=== PATIENT | female | born 1995 | race Caucasian/White ===

== ENCOUNTER 2022-10-24 12:39 | Emergency (ER) | payer MEDICAID, SELFPAY ==
--- NOTE | ~2022-10-24 | CT_ITS ---
EXAMINATION: CT ABDOMEN AND PELVIS WITHOUT CONTRAST CLINICAL INFORMATION: Right flank pain. COMPARISON: None TECHNIQUE: Multidetector volumetric imaging was performed from the superior aspect of the liver through the pubic symphysis. Sagittal and coronal reformatted images were obtained on the technologist's workstation. This CT examination was performed using dose optimization techniques as appropriate, variously including the following: *Automated exposure control *Adjustment of mA and/or kV according to patient size (this includes techniques or standardized protocols for targeted exams where dose is matched to indication/reason for exam; i.e. extremities or head) *Use of iterative reconstruction technique DLP: 603 mGy-cm FINDINGS: LUNG BASES: The visualized lung bases are unremarkable. LIVER, GALLBLADDER, AND BILIARY TREE: The liver is normal in size, shape, and attenuation. No focal hepatic lesion or biliary ductal dilatation is present. The gallbladder is unremarkable with no evidence of radiopaque gallstones, gallbladder wall thickening, or obvious pericholecystic inflammatory changes. PANCREAS: Unremarkable. SPLEEN: Unremarkable. ADRENAL GLANDS: Unremarkable. KIDNEYS AND URETERS: The kidneys are normal in size, shape, and attenuation. No hydronephrosis, hydroureter, or calculi seen. No perinephric stranding. There are 1 mm punctate calcifications are tiny stones in the midpole and lower pole right kidney. BLADDER: Unremarkable. GASTROINTESTINAL TRACT: There is moderate stool seen in colon without distention. The small bowel loops are normal caliber. A retrocecal appendix is normal caliber. No inflammatory process seen in the right abdomen. ABDOMINAL WALL: No significant hernia is appreciated. LYMPH NODES: Normal. VASCULAR: Unremarkable. PELVIC VISCERA: There is 3.2 x 3.5 cm cyst posterior and superior right uterus likely a small ovarian cyst. No solid lesion seen. No free fluid. OSSEOUS STRUCTURES: Unremarkable. CT/CT abdomen pelvis wo IV con IMPRESSION: Punctate nonobstructive radiopaque calculi mid pole and lower pole right kidney. Moderate constipation without obstruction. Appendix is normal caliber. Fleischner guidelines were followed.
--- NOTE | 2022-10-24 12:53 | ED.GENADULT ---
HPI - General Adult General Chief complaint: Abdominal Pain <ALLI Cruz - Last Filed: 10/24/22 18:26> Stated complaint: Pelvic pain/back pain <ALLI Cruz - Last Filed: 10/24/22 18:26> Time Seen by Provider: 10/24/22 13:17 <ALLI Cruz - Last Filed: 10/24/22 18:26> Source: patient <Digna Viveros NP - Last Filed: 10/24/22 16:17> Mode of arrival: ambulatory <Digna Viveros NP - Last Filed: 10/24/22 16:17> Limitations: no limitations <Digna Viveros NP - Last Filed: 10/24/22 16:17> History of Present Illness HPI narrative: 27-year-old female previously healthy here with UTI symptoms the last 3 days now with pain to the right right groin radiating up to the right flank since last night. Patient reports pain was severe enough last night that she had 1 episode of vomiting. She denies any additional episodes of vomiting. No fevers, chills, diarrhea or constipation. Pain began after having sexual intercourse. No new sexual partners. <Digna Viveros NP - Last Filed: 10/24/22 16:17> Related Data Home medications: Previous Rx's Medication Instructions Recorded ciprofloxacin HCl 500 mg tablet 500 mg PO Q12H #20 tabs 10/24/22 (Cipro) oxycodone 5 mg tablet 5 mg PO Q8H PRN pain #8 tabs 10/24/22 phenazopyridine 200 mg tablet 200 mg PO TID PRN pain 6 doses #10 10/24/22 (Pyridium) tabs <ALLI Cruz - Last Filed: 10/24/22 18:26> Allergies/adverse reactions: Allergies Allergy/AdvReac Type Severity Reaction Status Date / Time shellfish derived Allergy Unknown hives, Verified 10/24/22 12:54 [SHELLFISH DERIVED] swell shellfish Allergy Unknown Swelling Uncoded 10/24/22 12:54 <ALLI Cruz Last Filed: 10/24/22 18:26> Review of Systems Review of Systems: Yes all other systems are reviewed and are negative <Digna Viveros NP - Last Filed: 10/24/22 16:17> Constitutional: Constitutional: Reports no additional constitutional complaints, Denies body ache(s), Denies chills, Denies fever(s), Denies headache(s) and Denies weakness <Digna Viveros MANAGER BEVERAGE - Last Filed: 10/24/22 16:17> Eyes: Eyes: Reports no additional eye complaints and Denies change in vision <Digna Viveros MANAGER BEVERAGE - Last Filed: 10/24/22 16:17> ENT: Reports system reviewed and no additional complaints, except as documented, Denies dizziness, Denies headache(s), Denies nasal congestion, Denies nasal discharge and Denies neck pain <Digna Viveros MANAGER BEVERAGE - Last Filed: 10/24/22 16:17> Cardiovascular: Cardiovascular: Reports no additional cardiovascular complaints, Denies chest pain, Denies leg edema and Denies dyspnea <Digna Viverso MANAGER BEVERAGE - Last Filed: 10/24/22 16:17> Respiratory: Respiratory: Reports no additional respiratory complaints, Denies cough and Denies dyspnea <Digna Viveros MANAGER BEVERAGE - Last Filed: 10/24/22 16:17> Gastrointestinal: Gastrointestinal: Reports no additional gastrointestinal complaints, Denies abdominal pain, Denies diarrhea, Denies nausea and Denies vomiting <Digna Viveros MANAGER BEVERAGE - Last Filed: 10/24/22 16:17> Genitourinary: Genitourinary: Reports no additional female genitourinary complaints, Reports dysuria, Denies pelvic pain, Reports flank pain, Denies urinary incontinence, Denies urinary hesitancy, Reports urinary urgency and Denies vaginal discharge <Digna Viveros MANAGER BEVERAGE - Last Filed: 10/24/22 16:17> Musculoskeletal: Musculoskeletal: Reports no additional musculoskeletal complaints, Reports back pain, Denies arthralgias, Denies joint swelling, Denies neck pain, Denies numbness and Denies tingling <Digna Viveros MANAGER BEVERAGE - Last Filed: 10/24/22 16:17> Integumentary/Breasts: Skin/Breast: Reports system reviewed and no additional complaints, except as docu and Denies rash <Digna Viveros NP - Last Filed: 10/24/22 16:17> Neurologic: Reports system reviewed and no additional complaints, except as documented, Denies dizziness, Denies headache(s), Denies numbness, Denies tingling and Denies weakness <Digna Viveros NP - Last Filed: 10/24/22 16:17> PMFSH Past Medical History Attestation statement: The following information was validated with the patient. <Digna Viveros NP - Last Filed: 10/24/22 16:17> Source: old records reviewed and nursing notes reviewed <Digna Viveros NP - Last Filed: 10/24/22 16:17> Social History Social History: Social History Alcohol intake: unknown Use of substances other than those prescribed or required for medical reasons: Unknown Advance Directives: No Advance Directives Information Provided: No <ALLI Cruz - Last Filed: 10/24/22 18:26> Physical Exam ED Vital Signs: Vital Signs - 24 hr 10/24/22 12:55 10/24/22 14:13 Temperature 98.4 F 97.6 F Pulse Rate 90 63 Respiratory Rate 20 18 Blood Pressure 124/79 107/68 Pulse Oximetry 100 99 Oxygen Delivery Method Room Air Room Air BMI result Body Mass Index 33.0 <ALLI Cruz - Last Filed: 10/24/22 18:26> Vital Signs - 24 hr 10/24/22 12:55 10/24/22 14:13 Temperature 98.4 F 97.6 F Pulse Rate 90 63 Respiratory Rate 20 18 Blood Pressure 124/79 107/68 Pulse Oximetry 100 99 Oxygen Delivery Method Room Air Room Air BMI result Body Mass Index 33.0 <Digna Viveros NP - Last Filed: 10/24/22 16:17> Const General: cooperative, healthy appearing, comfortable and no acute distress <Digna Viveros NP - Last Filed: 10/24/22 16:17> Orientation/consciousness: patient oriented x3 <Digna Viveros NP - Last Filed: 10/24/22 16:17> Limitations: no limitations <Digna Viveros NP - Last Filed: 10/24/22 16:17> HENMT Head: Yes normal to inspection <Digna Viveros NP - Last Filed: 10/24/22 16:17> Ears: hearing grossly normal bilaterally <Digna Viveros MANAGER BEVERAGE - Last Filed: 10/24/22 16:17> Eyes General: appearance normal, both eyes and all related structures <Digna Viveros MANAGER BEVERAGE - Last Filed: 10/24/22 16:17> Pupils: Equal, round and reactive pupils present <Digna Viveros MANAGER BEVERAGE - Last Filed: 10/24/22 16:17> Neck Neck: Yes normal visual inspection, Yes full ROM, Yes no lymphadenopathy and Yes no meningeal signs <Digna Viveros MANAGER BEVERAGE - Last Filed: 10/24/22 16:17> Chest Chest palpation & inspection: normal inspection of the chest <Digna Viveros NP - Last Filed: 10/24/22 16:17> Resp Effort & Inspection: normal respiratory effort <Digna Viveros MANAGER BEVERAGE - Last Filed: 10/24/22 16:17> Auscultation: clear to auscultation bilaterally <Digna Viveros MANAGER BEVERAGE - Last Filed: 10/24/22 16:17> Cardio Rate: regular rate <Digna Viveros MANAGER BEVERAGE - Last Filed: 10/24/22 16:17> Rhythm: regular rhythm <Digna Viveros MANAGER BEVERAGE - Last Filed: 10/24/22 16:17> Peripheral pulses: Peripheral pulses 2+ throughout <Digna Viveros MANAGER BEVERAGE - Last Filed: 10/24/22 16:17> GI Inspection: Yes normal to inspection <Digna Viveros MANAGER BEVERAGE - Last Filed: 10/24/22 16:17> Palpation (GI): Soft to palpation and Tenderness to palpation present (GI) (Tenderness the right groin with no rebound or guarding) <Digna Viveros MANAGER BEVERAGE - Last Filed: 10/24/22 16:17> General: Yes CVA tenderness (Right-sided) <Digna Viveros MANAGER BEVERAGE - Last Filed: 10/24/22 16:17> Back/Spine/Pelvis Back: CVA tenderness (Right-sided) <Digna Viveros NP - Last Filed: 10/24/22 16:17> Thoracic/Lumbar Spine: thoracic and lumbar spine normal to inspection <Digna Viveros NP - Last Filed: 10/24/22 16:17> Skin General skin exam: no rashes or lesions noted <Digna Viveros NP - Last Filed: 10/24/22 16:17> Neuro General: patient oriented x3, moves all extremities and no meningeal signs <Digna Viveros NP - Last Filed: 10/24/22 16:17> Cranial nerves: Yes Equal, round and reactive pupils present <Digna Viveros NP - Last Filed: 10/24/22 16:17> Cognition (Neuro): normal cognition <Digna Viveros NP - Last Filed: 10/24/22 16:17> Gait exam (Neuro): Normal gait present <Digna Viveros NP - Last Filed: 10/24/22 16:17> Extrem General: Yes normal to inspection, Yes no pedal edema and Yes no calf tenderness <Digna Viveros NP - Last Filed: 10/24/22 16:17> Course Course Course Narrative: RME: 27 yold female presents to the ED for left flank pain/lower suprapubic pain with hematuria/dyusira. positive left CVA of flanks and left suprapubic. labs and UA ordered. <ALLI Cruz - Last Filed: 10/24/22 18:26> Reevaluation(s) Reevaluation #1: 1615-CT shows several nonobstructing calculi within the kidney. UA is consistent with UTI. Labs show very mild leukocytosis. Pain is well controlled. Patient is tolerating p.o.. Will discharge home with antibiotics. Patient may have early pyelonephritis which was discussed with her. Will also send her home with pain control, pyridium p.r.n.. Reviewed worrisome signs and symptoms of when to return to the emergency room. Comfortable plan for discharge home. <Digna Viveros NP - Last Filed: 10/24/22 16:17> Medications Administered Discontinued Medications Generic Name Dose Route Start Last Admin Trade Name Freq PRN Reason Stop Dose Admin Ketorolac Tromethamine 30 mg 10/24/22 13:26 10/24/22 13:45 Ketorolac Tromethamine 30 Mg/Ml Vial IVPUSH 10/24/22 13:27 30 mg ONCE ONE Administration <ALLI Cruz - Last Filed: 10/24/22 18:26> Medications Administered Discontinued Medications Generic Name Dose Route Start Last Admin Trade Name Freq PRN Reason Stop Dose Admin Ketorolac Tromethamine 30 mg 10/24/22 13:26 10/24/22 13:45 Ketorolac Tromethamine 30 Mg/Ml Vial IVPUSH 10/24/22 13:27 30 mg ONCE ONE Administration <Digna Viveros NP - Last Filed: 10/24/22 16:17> Medical Decision Making Medical Decision Making [facility] Narrative: 27-year-old female here with UTI symptoms for several days now with right groin pain with radiation to the right flank. Will need, UA, CT Pain began after intercourse. Will send testing for gonorrhea and chlamydia. Patient with low concern for this <Digna Viveros NP - Last Filed: 10/24/22 16:17> Differential Diagnosis Differential Diagnoses: The differential diagnosis associated with the presentation includes <Digna Viveros NP - Last Filed: 10/24/22 16:17> Renal colic, pyelonephritis, UTI <Digna Viveros NP - Last Filed: 10/24/22 16:17> Lab Data [facility] Lab Attestation statement: I reviewed the patient's lab results. <Digna Viveros NP - Last Filed: 10/24/22 16:17> Result Diagrams: 10/24/22 13:00 10/24/22 13:00 <ALLI Cruz - Last Filed: 10/24/22 18:26> Labs: Lab Results 10/24/22 10/24/22 10/24/22 Range/Units 13:00 13:00 13:00 WBC 11.7 H (4.8-10.8) X10*3/uL RBC 3.76 L (4.20-5.50) X10*6/uL Hgb 12.3 (12.0-16.0) g/dl Hct 37.2 (37.0-47.0) % MCV 98.9 H (80.0-98.0) fL MCH 32.7 (27.0-33.0) pg MCHC 33.1 (31.0-35.0) g/dl RDW 14.0 (11.0-16.0) % Plt Count 327 (160-400) X10*3/uL MPV 11.0 (9.4-12.3) fL Immature Gran % (Auto) 0.3 (0.0-0.4) % Neut % (Auto) 74.5 H (45-73) % Lymph % (Auto) 17.9 L (20-40) % [place] % (Auto) 5.8 (2-11) % Eos % (Auto) 0.9 (0-4) % Baso % (Auto) 0.6 (0-2) % Lymph # (Auto) 2.1 (1.2-4.9) X10*3/uL [place] # (Auto) 0.7 (0.1-1.2) X10*3/uL Eos # (Auto) 0.1 (0.0-0.4) X10*3/uL Baso # (Auto) 0.1 (0.0-0.2) X10*3/uL Abs Immat Gran (auto) 0.04 H (0.00-0.03) X10*3/uL Absolute Neuts (auto) 8.7 H (2.0-8.3) x10*3/uL Absolute Nucleated RBC 0.000 (0.0-0.012) X10*3/uL Nucleated RBC % (auto) 0.0 (0.0-0.2) /100WBC PT 11.4 (10.0-13.1) SEC INR 1.0 (0.9-1.1) APTT 30.3 (26.0-36.4) SEC Sodium 140 (135-145) mmol/L Potassium 4.4 (3.3-5.1) mmol/L Chloride 109 H (96-108) mmol/L Carbon Dioxide 20 L (22-29) mmol/L Anion Gap 15 (12-20) BUN 8 L (9-16) mg/dL Creatinine 0.84 (0.5-1.4) mg/dL Estim Creat Clear Calc 99.8 Estimated GFR > 60 Random Glucose 94 (60-115) mg/dL Calcium 9.5 (8.4-10.2) mg/dL Total Bilirubin 0.9 (0.0-1.0) mg/dL AST 14 (5-31) U/L ALT 14 (0-31) U/L Alkaline Phosphatase 71 (39-117) U/L Total Protein 7.0 (6.5-8.0) g/dL Albumin 4.2 (3.5-5.0) g/dL Beta HCG, Quant < 2 mIU/mL Urine Color Urine Appearance Urine pH (5.0-9.0) Ur Specific [place] (1.005-1.025) Urine Protein (Neg-Trace) mg/dL Urine Glucose (UA) (Negative) mg/dL Urine Ketones (Negative) mg/dL Urine Blood (Negative) Urine Nitrite (Negative) Ur Leukocyte Esterase (Negative) Urine RBC (0-2) /HPF Urine WBC (0-5) /HPF Ur Squamous Epith Cells (0-2) /HPF Urine Bacteria (None Seen) Hyaline Casts (0-2) /LPF Chlam trachomat DNA PCR (Not Detect.) COVID-19 (POONAM) (Negative) COVID-19 Clin Com N.gonorrhoeae DNA (PCR) (Not Detect.) 10/24/22 10/24/22 10/24/22 Range/Units 13:40 13:41 13:41 WBC (4.8-10.8) X10*3/uL RBC (4.20-5.50) X10*6/uL Hgb (12.0-16.0) g/dl Hct (37.0-47.0) % MCV (80.0-98.0) fL MCH (27.0-33.0) pg MCHC (31.0-35.0) g/dl RDW (11.0-16.0) % Plt Count (160-400) X10*3/uL MPV (9.4-12.3) fL Immature Gran % (Auto) (0.0-0.4) % Neut % (Auto) (45-73) % Lymph % (Auto) (20-40) % [place] % (Auto) (2-11) % Eos % (Auto) (0-4) % Baso % (Auto) (0-2) % Lymph # (Auto) (1.2-4.9) X10*3/uL [place] # (Auto) (0.1-1.2) X10*3/uL Eos # (Auto) (0.0-0.4) X10*3/uL Baso # (Auto) (0.0-0.2) X10*3/uL Abs Immat Gran (auto) (0.00-0.03) X10*3/uL Absolute Neuts (auto) (2.0-8.3) x10*3/uL Absolute Nucleated RBC (0.0-0.012) X10*3/uL Nucleated RBC % (auto) (0.0-0.2) /100WBC PT (10.0-13.1) SEC INR (0.9-1.1) APTT (26.0-36.4) SEC Sodium (135-145) mmol/L Potassium (3.3-5.1) mmol/L Chloride (96-108) mmol/L Carbon Dioxide (22-29) mmol/L Anion Gap (12-20) BUN (9-16) mg/dL Creatinine (0.5-1.4) mg/dL Estim Creat Clear Calc Estimated GFR Random Glucose (60-115) mg/dL Calcium (8.4-10.2) mg/dL Total Bilirubin (0.0-1.0) mg/dL AST (5-31) U/L ALT (0-31) U/L Alkaline Phosphatase (39-117) U/L Total Protein (6.5-8.0) g/dL Albumin (3.5-5.0) g/dL Beta HCG, Quant mIU/mL Urine Color Yellow Urine Appearance Cloudy Urine pH 8.5 (5.0-9.0) Ur Specific [place] 1.015 (1.005-1.025) Urine Protein 100 (2+) H (Neg-Trace) mg/dL Urine Glucose (UA) Negative (Negative) mg/dL Urine Ketones Negative (Negative) mg/dL Urine Blood Small (1+) H (Negative) Urine Nitrite Positive H (Negative) Ur Leukocyte Esterase Large (3+) H (Negative) Urine RBC 3-5 H (0-2) /HPF Urine WBC >50 H (0-5) /HPF Ur Squamous Epith Cells 3-5 (0-2) /HPF Urine Bacteria 4+ (None Seen) Hyaline Casts 0-2 (0-2) /LPF Chlam trachomat DNA PCR NOT DETECTED (Not Detect.) COVID-19 (POONAM) Negative (Negative) COVID-19 Clin Com See Note N.gonorrhoeae DNA (PCR) NOT DETECTED (Not Detect.) <ALLI Cruz - Last Filed: 10/24/22 18:26> Lab Results 10/24/22 10/24/22 10/24/22 Range/Units 13:00 13:00 13:00 WBC 11.7 H (4.8-10.8) X10*3/uL RBC 3.76 L (4.20-5.50) X10*6/uL Hgb 12.3 (12.0-16.0) g/dl Hct 37.2 (37.0-47.0) % MCV 98.9 H (80.0-98.0) fL MCH 32.7 (27.0-33.0) pg MCHC 33.1 (31.0-35.0) g/dl RDW 14.0 (11.0-16.0) % Plt Count 327 (160-400) X10*3/uL MPV 11.0 (9.4-12.3) fL Immature Gran % (Auto) 0.3 (0.0-0.4) % Neut % (Auto) 74.5 H (45-73) % Lymph % (Auto) 17.9 L (20-40) % [place] % (Auto) 5.8 (2-11) % Eos % (Auto) 0.9 (0-4) % Baso % (Auto) 0.6 (0-2) % Lymph # (Auto) 2.1 (1.2-4.9) X10*3/uL [place] # (Auto) 0.7 (0.1-1.2) X10*3/uL Eos # (Auto) 0.1 (0.0-0.4) X10*3/uL Baso # (Auto) 0.1 (0.0-0.2) X10*3/uL Abs Immat Gran (auto) 0.04 H (0.00-0.03) X10*3/uL Absolute Neuts (auto) 8.7 H (2.0-8.3) x10*3/uL Absolute Nucleated RBC 0.000 (0.0-0.012) X10*3/uL Nucleated RBC % (auto) 0.0 (0.0-0.2) /100WBC PT 11.4 (10.0-13.1) SEC INR 1.0 (0.9-1.1) APTT 30.3 (26.0-36.4) SEC Sodium 140 (135-145) mmol/L Potassium 4.4 (3.3-5.1) mmol/L Chloride 109 H (96-108) mmol/L Carbon Dioxide 20 L (22-29) mmol/L Anion Gap 15 (12-20) BUN 8 L (9-16) mg/dL Creatinine 0.84 (0.5-1.4) mg/dL Estim Creat Clear Calc 99.8 Estimated GFR > 60 Random Glucose 94 (60-115) mg/dL Calcium 9.5 (8.4-10.2) mg/dL Total Bilirubin 0.9 (0.0-1.0) mg/dL AST 14 (5-31) U/L ALT 14 (0-31) U/L Alkaline Phosphatase 71 (39-117) U/L Total Protein 7.0 (6.5-8.0) g/dL Albumin 4.2 (3.5-5.0) g/dL Beta HCG, Quant < 2 mIU/mL Urine Color Urine Appearance Urine pH (5.0-9.0) Ur Specific [place] (1.005-1.025) Urine Protein (Neg-Trace) mg/dL Urine Glucose (UA) (Negative) mg/dL Urine Ketones (Negative) mg/dL Urine Blood (Negative) Urine Nitrite (Negative) Ur Leukocyte Esterase (Negative) Urine RBC (0-2) /HPF Urine WBC (0-5) /HPF Ur Squamous Epith Cells (0-2) /HPF Urine Bacteria (None Seen) Hyaline Casts (0-2) /LPF Chlam trachomat DNA PCR (Not Detect.) COVID-19 (POONAM) (Negative) COVID-19 Clin Com N.gonorrhoeae DNA (PCR) (Not Detect.) 10/24/22 10/24/22 10/24/22 Range/Units 13:40 13:41 13:41 WBC (4.8-10.8) X10*3/uL RBC (4.20-5.50) X10*6/uL Hgb (12.0-16.0) g/dl Hct (37.0-47.0) % MCV (80.0-98.0) fL MCH (27.0-33.0) pg MCHC (31.0-35.0) g/dl RDW (11.0-16.0) % Plt Count (160-400) X10*3/uL MPV (9.4-12.3) fL Immature Gran % (Auto) (0.0-0.4) % Neut % (Auto) (45-73) % Lymph % (Auto) (20-40) % [place] % (Auto) (2-11) % Eos % (Auto) (0-4) % Baso % (Auto) (0-2) % Lymph # (Auto) (1.2-4.9) X10*3/uL [place] # (Auto) (0.1-1.2) X10*3/uL Eos # (Auto) (0.0-0.4) X10*3/uL Baso # (Auto) (0.0-0.2) X10*3/uL Abs Immat Gran (auto) (0.00-0.03) X10*3/uL Absolute Neuts (auto) (2.0-8.3) x10*3/uL Absolute Nucleated RBC (0.0-0.012) X10*3/uL Nucleated RBC % (auto) (0.0-0.2) /100WBC PT (10.0-13.1) SEC INR (0.9-1.1) APTT (26.0-36.4) SEC Sodium (135-145) mmol/L Potassium (3.3-5.1) mmol/L Chloride (96-108) mmol/L Carbon Dioxide (22-29) mmol/L Anion Gap (12-20) BUN (9-16) mg/dL Creatinine (0.5-1.4) mg/dL Estim Creat Clear Calc Estimated GFR Random Glucose (60-115) mg/dL Calcium (8.4-10.2) mg/dL Total Bilirubin (0.0-1.0) mg/dL AST (5-31) U/L ALT (0-31) U/L Alkaline Phosphatase (39-117) U/L Total Protein (6.5-8.0) g/dL Albumin (3.5-5.0) g/dL Beta HCG, Quant mIU/mL Urine Color Yellow Urine Appearance Cloudy Urine pH 8.5 (5.0-9.0) Ur Specific [place] 1.015 (1.005-1.025) Urine Protein 100 (2+) H (Neg-Trace) mg/dL Urine Glucose (UA) Negative (Negative) mg/dL Urine Ketones Negative (Negative) mg/dL Urine Blood Small (1+) H (Negative) Urine Nitrite Positive H (Negative) Ur Leukocyte Esterase Large (3+) H (Negative) Urine RBC 3-5 H (0-2) /HPF Urine WBC >50 H (0-5) /HPF Ur Squamous Epith Cells 3-5 (0-2) /HPF Urine Bacteria 4+ (None Seen) Hyaline Casts 0-2 (0-2) /LPF Chlam trachomat DNA PCR NOT DETECTED (Not Detect.) COVID-19 (POONAM) Negative (Negative) COVID-19 Clin Com See Note N.gonorrhoeae DNA (PCR) NOT DETECTED (Not Detect.) <Digna Viveros NP - Last Filed: 10/24/22 16:17> Independent Interpretation I performed an independent interpretation of an: CT Scan (Independently reviewed the CT scan which shows nonobstructive renal calculi within the kidney and moderate constipation) <ZABRINA Serrano Last Filed: 10/24/22 16:17> Radiology Impression Discussion of test interpretation with radiology: I have reviewed the radiologist's reading. <Digna Viveros NP - Last Filed: 10/24/22 16:17> Radiologist Impression: FINDINGS: LUNG BASES: The visualized lung bases are unremarkable.? LIVER, GALLBLADDER, AND BILIARY TREE: The liver is normal in size, shape, and attenuation. No focal hepatic lesion or biliary ductal dilatation is present. The gallbladder is unremarkable with no evidence of radiopaque gallstones, gallbladder wall thickening, or obvious pericholecystic inflammatory changes.? PANCREAS: Unremarkable.? SPLEEN: Unremarkable.? ADRENAL GLANDS: Unremarkable.? KIDNEYS AND URETERS: The kidneys are normal in size, shape, and attenuation. No hydronephrosis, hydroureter, or calculi seen. No perinephric stranding. There are 1 mm punctate calcifications are tiny stones in the midpole and lower pole right kidney. BLADDER: Unremarkable.? GASTROINTESTINAL TRACT: There is moderate stool seen in colon without distention. The small bowel loops are normal caliber. A retrocecal appendix is normal caliber. No inflammatory process seen in the right abdomen. ABDOMINAL WALL: No significant hernia is appreciated.? LYMPH NODES: Normal. VASCULAR: Unremarkable. PELVIC VISCERA: There is 3.2 x 3.5 cm cyst posterior and superior right uterus likely a small ovarian cyst. No solid lesion seen. No free fluid.? OSSEOUS STRUCTURES: Unremarkable.? CT/CT abdomen pelvis wo IV con IMPRESSION: Punctate nonobstructive radiopaque calculi mid pole and lower pole right kidney. ? Moderate constipation without obstruction. Appendix is normal caliber. ? ? Fleischner guidelines were followed. <Digna Viveros NP - Last Filed: 10/24/22 16:17> Discharge Plan Discharge Clinical Impression: Pyelonephritis <ALLI Cruz - Last Filed: 10/24/22 18:26> Patient Disposition: Home, Self-Care <ALLI Cruz - Last Filed: 10/24/22 18:26> Instructions: Kidney Infection (ED) <ALLI Cruz - Last Filed: 10/24/22 18:26> Additional Instructions: You do have several kidney stones with in your kidney but these are not causing her pain You likely have a kidney infection Increase fluids, rest Return for worsening symptoms <ALLI Cruz - Last Filed: 10/24/22 18:26> Prescriptions: New ciprofloxacin HCl [Cipro] 500 mg tablet 500 mg PO Q12H Qty: 20 0RF phenazopyridine [Pyridium] 200 mg tablet 200 mg PO TID PRN (Reason: pain) Qty: 10 0RF oxycodone 5 mg tablet 5 mg PO Q8H PRN (Reason: pain) Qty: 8 0RF Rx Instructions: Partial Fill upon patient request. <ALLI Cruz - Last Filed: 10/24/22 18:26> Referrals: Physician,None [Primary Care Provider] - <ALLI Cruz - Last Filed: 10/24/22 18:26> Stand Alone Forms: Work/School Release <ALLI Cruz - Last Filed: 10/24/22 18:26> Interventions: ED Discharge Assessment Last Done: 10/24/22 16:10 <ALLI Cruz - Last Filed: 10/24/22 18:26> Discharge Date/Time: 10/24/22 16:10 <ALLI Cruz - Last Filed: 10/24/22 18:26>
[2022-10-24 12:55] VITALS: BP 124/79; PULSE 90; RESP 20; TEMP 36.9; O2SAT 100; BMI 33.0
[2022-10-24 13:10] LABS: MANUAL DIFF FLAG NO
[2022-10-24 13:14] LABS: Basophils Absolute Auto 0.1 X10*3/uL (0.0-0.2); Basophils Percent Auto 0.6 % (0-2); Eosinophils Absolute Auto 0.1 X10*3/uL (0.0-0.4); Eosinophils Percent Auto 0.9 % (0-4); Hematocrit 37.2 % (37.0-47.0); Hemoglobin 12.3 g/dl (12.0-16.0); Imm Gran Abs Auto 0.04 X10*3/uL (0.00-0.03); Imm Gran Pct Auto 0.3 % (0.0-0.4); Lymphocytes Absolute Auto 2.1 X10*3/uL (1.2-4.9); Lymphocytes Percent Auto 17.9 % (20-40); Mean Corpuscular HGB Conc 33.1 g/dl (31.0-35.0); Mean Corpuscular Hemoglobin 32.7 pg (27.0-33.0); Mean Corpuscular Volume 98.9 fL (80.0-98.0); Monocytes Absolute Auto 0.7 X10*3/uL (0.1-1.2); Monocytes Percent Auto 5.8 % (2-11); Neutrophils Absolute Auto 8.7 x10*3/uL (2.0-8.3); Neutrophils Percent Auto 74.5 % (45-73); Platelet Count 327 X10*3/uL (160-400); Red Blood Count 3.76 X10*6/uL (4.20-5.50); White Blood Count 11.7 X10*3/uL (4.8-10.8)
[2022-10-24 13:19] LABS: Prothrombin Time 11.4 SEC (10.0-13.1)
--- NOTE | 2022-10-24 13:19 | PC.NURSE ---
Patient complaint of abdominal pain radiating to her back denies personal or familial kidney stones. Reports dysuria and small amounts of blood in urine reports no blood in stool. ABD soft tender RUQ no guarding noted BS quad x 4. No respiratory distress noted speaks in clear full sentences. IV access obtained will CTM
[2022-10-24 13:22] LABS: Partial Thromboplastin Time 30.3 SEC (26.0-36.4)
[2022-10-24 13:40] LABS: Alanine Aminotransferase 14 U/L (0-31); Albumin Level 4.2 g/dL (3.5-5.0); Alkaline Phosphatase 71 U/L (39-117); Anion Gap 15 (12-20); Aspartate Amino Transferase 14 U/L (5-31); Bilirubin Total 0.9 mg/dL (0.0-1.0); Blood Urea Nitrogen 8 mg/dL (9-16); Calcium 9.5 mg/dL (8.4-10.2); Carbon Dioxide 20 mmol/L (22-29); Chloride 109 mmol/L (96-108); Creatinine Clr Calc Pharmacy 99.8; Estimated Glomerular Filt Rate > 60; Glucose Random 94 mg/dL (60-115); HCG Quantitative < 2 mIU/mL; Potassium 4.4 mmol/L (3.3-5.1); Sodium 140 mmol/L (135-145)
[2022-10-24] MEDS: Ketorolac Tromethamine 30 MG/ML VIAL IVPUSH (13:45)
[2022-10-24 13:53] LABS: Appearance Urine Cloudy; Color Urine Yellow; Glucose Urine UA Negative (Negative); Leukocyte Esterase Urine Large (3+) (Negative); Nitrite Urine Positive (Negative); PH 8.5 (5.0-9.0); Specific Gravity - Urine 1.015 (1.005-1.025); UMIC TRIGGER UACC YES; Urine Blood Small (1+) (Negative); Urine Ketones Negative (Negative); Urine Protein 100 (2+) mg/dL (Neg-Trace)
[2022-10-24 14:05] LABS: COVID-19 Test Negative (Negative); IDNOW Serial# 16C4AD1C
[2022-10-24 14:08] LABS: Bacteria Urine 4+ (None Seen); Hyaline Casts Urine 0-2 /LPF (0-2); UACC Culture Trigger YES; WBC Urine >50 /HPF (0-5)
[2022-10-24 14:13] VITALS: BP 107/68; PULSE 63; RESP 18; TEMP 36.4; O2SAT 99
[2022-10-24 16:12] LABS: CT PCR NOT DETECTED (Not Detect.); NG PCR NOT DETECTED (Not Detect.)
== END 2022-10-24 16:10 | disposition home or self-care (01) ==
PROVIDERS: Nurse Practitioner Family; Physician Assistant; Emergency Provider Emergency Medicine
DX: N12 Tubulo-interstitial nephritis, not specified as acute or chronic (principal); N39.0 Urinary tract infection, site not specified; R10.31 Right lower quadrant pain; R10.9 Unspecified abdominal pain; Z20.822 Contact with and (suspected) exposure to COVID-19; Z20.828 Contact with and (suspected) exposure to other viral communicable diseases; Z79.899 Other long term (current) drug therapy; Z20.2 Contact with and (suspected) exposure to infections with a predominantly sexual mode of transmission
CPT/HCPCS: 0353U; 36415; 74176; 80053; 81001; 84702; 85025; 85610; 85730; 87086; 87088; 87186; 87635; 96374; 99284; J1885

== ENCOUNTER 2023-05-29 18:49 | Emergency (ER) | payer MEDICAID, SELFPAY ==
--- NOTE | ~2023-05-29 | CT_ITS ---
EXAMINATION: CT ABDOMEN AND PELVIS WITH CONTRAST CLINICAL INFORMATION: Right flank/right upper quadrant/epigastric pain. Nausea, vomiting, diarrhea. COMPARISON: 10/24/2022 TECHNIQUE: Multidetector volumetric images were obtained from the superior aspect of the liver through the pubic symphysis following administration 85 mL of Omnipaque 350 intravenous contrast. Sagittal and coronal reformatted images were obtained on the technologist's workstation. Oral contrast: No This CT examination was performed using dose optimization techniques as appropriate, variously including the following: *Automated exposure control *Adjustment of mA and/or kV according to patient size (this includes techniques or standardized protocols for targeted exams where dose is matched to indication/reason for exam; i.e. extremities or head) *Use of iterative reconstruction technique DLP: 573 mGy-cm FINDINGS: LUNG BASES: The visualized lung bases are unremarkable. LIVER, GALLBLADDER, AND BILIARY TREE: The liver is normal in size, shape, and attenuation. No focal hepatic lesion or biliary ductal dilatation is present. The gallbladder is unremarkable with no evidence of radiopaque gallstones, gallbladder wall thickening, or obvious pericholecystic inflammatory changes. PANCREAS: Unremarkable. SPLEEN: Unremarkable. ADRENAL GLANDS: Unremarkable. KIDNEYS AND URETERS: The kidneys are normal in size, shape, and attenuation. No hydronephrosis, hydroureter, or calculi seen. No perinephric stranding. BLADDER: Unremarkable. GASTROINTESTINAL TRACT: The stomach is unremarkable. Normal caliber of the small bowel. There is no obstruction. Normal appendix. No colonic wall thickening or inflammation. No free air or free fluid. ABDOMINAL WALL: No significant hernia is appreciated. LYMPH NODES: Normal. VASCULAR: Unremarkable. PELVIC VISCERA: The uterus and adnexa are unremarkable. OSSEOUS STRUCTURES: Unremarkable. CT/CT abdomen pelvis w IV con IMPRESSION: No acute findings of the abdomen or pelvis. No inflammatory changes. Normal appearance of the gallbladder. Fleischner guidelines were followed.
[2023-05-29 19:32] VITALS: BP 133/84; PULSE 53; RESP 20; TEMP 37.1; O2SAT 99; BMI 32.0
[2023-05-29 19:55] LABS: MANUAL DIFF FLAG NO
--- NOTE | 2023-05-29 20:00 | ED_ITS ---
HPI - General Adult General Chief complaint: Abdominal Pain Stated complaint: Right side abd pain Time Seen by Provider: 05/29/23 21:09 Source: patient Mode of arrival: ambulatory Limitations: no limitations History of Present Illness HPI narrative: patient is a 27-year-old female who presents emergency department for evaluation of flank /abdominal pain. She reports onset of symptoms to be 6 days ago. Pain is present to the right flank and radiates to the right upper abdomen /epigastric region. She has been experiencing associated chills without any known fever, cold sweats, nausea, vomiting, diarrhea. Denies genitourinary symptoms. Denies bloody or dark stools. Denies possibility of report ing last menstrual period 2- 3 months ago though it is common for it to be irregular. Denies pelvic pain. reports history of kidney stones and pyelonephritis but states that this feels different from that. When asked, she does state that it is typically made worse with eating and she gets associated epigastric cramping. Related Data Previous Rx's Medication Instructions Recorded ciprofloxacin HCl 500 mg tablet 500 mg PO Q12H #20 tabs 10/24/22 (Cipro) oxycodone 5 mg tablet 5 mg PO Q8H PRN pain #8 tabs 10/24/22 phenazopyridine 200 mg tablet 200 mg PO TID PRN pain 6 doses #10 10/24/22 (Pyridium) tabs ondansetron 4 mg disintegrating 4 mg PO Q8H PRN nausea and 05/30/23 tablet vomiting #10 tabs Allergies Allergy/AdvReac Type Severity Reaction Status Date / Time shellfish derived Allergy Unknown hives, Verified 10/24/22 12:54 [SHELLFISH DERIVED] swell shellfish Allergy Unknown Swelling Uncoded 10/24/22 12:54 Review of Systems Review of Systems: Constitutional : No Weight loss, No Fever, Positive Chills ENT/Mouth :? No sore throat, No Rhinorrhea Eyes: No Swelling, No Redness Cardiovascular : No Chest Pain, No SOB, No Edema Respiratory : No Cough, No Sputum, No Wheezing Gastrointestinal : Positive Nausea, Positive Vomiting, positive Diarrhea, positive abdominal pain, No Hematochezia, No Melena Genitourinary : No Dysuria, No Urinary Frequency, No Hematuria, No Urgency? Musculoskeletal : No joint pain, No Myalgias, No Joint Swelling Skin : No Skin Lesions, No rash Neuro : No Weakness, No Numbness, No Dizziness, No Headache Psych : No Anxiety/Panic, No Depression Heme/Lymph: No Bruising, No Lymphadenopathy Endocrine : No Polyuria, No Polydipsia Yes all other systems are reviewed and are negative [facility] Past Medical History Attestation statement: The following information was validated with the patient. Source: old records reviewed Social History Social History Alcohol intake: unknown Smoked in Last 30 Days: Yes Use of substances other than those prescribed or required for medical reasons: No Advance Directives: No Advance Directives Information Provided: No Physical Exam ED Vital Signs: Vital Signs - 24 hr 05/29/23 19:32 05/30/23 00:30 05/30/23 00:47 Temperature 98.7 F 98.7 F Pulse Rate 53 49 L Respiratory Rate 20 14 18 Blood Pressure 133/84 109/49 L Pulse Oximetry 99 99 Oxygen Delivery Method Room Air Room Air BMI result Body Mass Index 32.0 Appearance: Alert.?Oriented to person, place and time. No acute distress.?Normal affect. Eyes: Pupils equal, round and reactive to light.? ENT: Pharynx normal.?? Neck: Normal inspection.? Neck supple.?? CVS: Heart sounds normal. Normal heart rate and rhythm.? Pulses normal.?? Respiratory: No respiratory distress.? Lung sounds clear to auscultation bilaterally?? Abdomen: Soft mild epigastric tenderness upon palpation. No rigidity. No guarding. No distension. Negative Dasilva sign. No rebound tenderness. Normoactive bowel sounds. Skin: Skin warm and dry.? Normal skin color.? Extremities: No lower extremity edema.? Neuro: Moves all extremities spontaneously. Sensation intact bilaterally. No focal neuro deficits. Ambulates with normal steady gait. Course Course Course Narrative: RME; 27 yold female presents to the ED for right flank pain abdominal pain. patient has pmh of kidney stones. labs ordered Reevaluation(s) Reevaluation #1: CBC reveals no leukocytosis, no anemia. CMP is overall unremarkable; LFTs within normal limits, lipase is normal. Urinalysis is without evidence of infection. Urine test is negative. improvement in pain with ketorolac and Zofran nausea. Able to tolerate oral intake. CT of the abdomen and pelvis revealing no acute abnormality. At this time symptoms most consistent with likely a gastroenteritis. Reviewed these findings with patient, discussed bland diet, advised outpatient follow-up with primary care provider in 1-3 days as needed for persistent symptoms. Sent prescription for Zofran to pharmacy. Time: 01:13 Medications Administered Discontinued Medications Generic Name Dose Route Start Last Admin Trade Name Seun PRN Reason Stop Dose Admin Sodium Chloride 1,000 mls @ 999 mls/hr 05/29/23 22:45 05/29/23 23:55 Ns IV 05/29/23 23:45 Infused .Q1H1M GIO Infusion Iohexol 85 ml 05/29/23 23:27 05/29/23 23:27 Iohexol 350 Mg/Ml 100 Ml Infus..Btl IV 05/29/23 23:28 85 ml ONCE ONE Administration Ketorolac Tromethamine 15 mg 05/29/23 22:36 05/29/23 22:55 Ketorolac Tromethamine 15 Mg/Ml Vial IVPUSH 05/29/23 22:37 15 mg ONCE ONE Administration Ondansetron HCl 4 mg 05/29/23 22:36 05/29/23 22:56 Ondansetron Hcl 4 Mg/2 Ml Vial IVPUSH 05/29/23 22:37 4 mg ONCE ONE Administration Medical Decision Making Medical Decision Making [facility] Narrative: Patient is a 27-year-old female who presents emergency department for evaluation of flank /right upper quadrant abdominal pain with associated symptoms as per HPI. At the time my examination she is overall well-appearing, nontoxic, afebrile. Abdominal examination is overall benign aside from mild tenderness upon palpation over the epigastric region, and the right flank. Examination is not consistent with acute abdomen. Will obtain CBC to evaluate for leukocytosis/ anemia, CMP and lipase to evaluate for abnormal electrolytes /abnormal renal function/ abnormal hepatic/biliary function, CT of the abdomen and pelvis and Urinalysis. Differential Diagnosis Differential Diagnoses: The differential diagnosis associated with the presentation includes ( gastritis, GERD, PUD, cholelithiasis, cholecystitis, ureteral calculi, pyelonephritis, hydronephrosis, diverticulitis) Admission/Observation Consideration of admission/observation: Escalation of care including admission/observation considered ( I considered hospital admission for abdominal pain, see course narrative for further detail) Lab Data MDM Lab Attestation statement: I reviewed the patient's lab results. ( see course narrative for further detail) 05/29/23 19:52 05/29/23 19:52 Labs: Lab Results 05/29/23 05/29/23 05/29/23 Range/Units 19:52 19:52 21:33 WBC 6.9 (4.8-10.8) X10*3/uL RBC 3.88 L (4.20-5.50) X10*6/uL Hgb 12.4 (12.0-16.0) g/dl Hct 37.7 (37.0-47.0) % MCV 97.2 (80.0-98.0) fL MCH 32.0 (27.0-33.0) pg MCHC 32.9 (31.0-35.0) g/dl RDW 13.4 (11.0-16.0) % Plt Count 338 (160-400) X10*3/uL MPV 10.6 (9.4-12.3) fL Immature Gran % (Auto) 0.1 (0.0-0.4) % Neut % (Auto) 54.4 (45-73) % Lymph % (Auto) 38.5 (20-40) % [place] % (Auto) 5.6 (2-11) % Eos % (Auto) 1.0 (0-4) % Baso % (Auto) 0.4 (0-2) % Lymph # (Auto) 2.7 (1.2-4.9) X10*3/uL [place] # (Auto) 0.4 (0.1-1.2) X10*3/uL Eos # (Auto) 0.1 (0.0-0.4) X10*3/uL Baso # (Auto) 0.0 (0.0-0.2) X10*3/uL Abs Immat Gran (auto) 0.01 (0.00-0.03) X10*3/uL Absolute Neuts (auto) 3.8 (2.0-8.3) x10*3/uL Absolute Nucleated RBC 0.000 (0.0-0.012) X10*3/uL Nucleated RBC % (auto) 0.0 (0.0-0.2) /100WBC Sodium 139 (135-145) mmol/L Potassium 4.1 (3.3-5.1) mmol/L Chloride 109 H (96-108) mmol/L Carbon Dioxide 23 (22-29) mmol/L Anion Gap 11 L (12-20) BUN 10 (9-16) mg/dL Creatinine 0.83 (0.5-1.4) mg/dL Estim Creat Clear Calc 99.3 Estimated GFR > 60 Random Glucose 84 (60-115) mg/dL Calcium 10.0 (8.4-10.2) mg/dL Total Bilirubin 0.3 (0.0-1.0) mg/dL AST 17 (5-31) U/L ALT 17 (0-31) U/L Alkaline Phosphatase 65 (39-117) U/L Total Protein 7.7 (6.5-8.0) g/dL Albumin 4.4 (3.5-5.0) g/dL Lipase 21 (8-78) U/L Beta HCG, Quant < 2 mIU/mL Urine Color Yellow Urine Appearance Clear Urine pH 5.5 (5.0-9.0) Ur Specific [place] 1.025 (1.005-1.025) Urine Protein Negative (Neg-Trace) mg/dL Urine Glucose (UA) Negative (Negative) mg/dL Urine Ketones Negative (Negative) mg/dL Urine Blood Negative (Negative) Urine Nitrite Negative (Negative) Ur Leukocyte Esterase Negative (Negative) Urine Test (NEGATIVE) 05/29/23 Range/Units 21:33 WBC (4.8-10.8) X10*3/uL RBC (4.20-5.50) X10*6/uL Hgb (12.0-16.0) g/dl Hct (37.0-47.0) % MCV (80.0-98.0) fL MCH (27.0-33.0) pg MCHC (31.0-35.0) g/dl RDW (11.0-16.0) % Plt Count (160-400) X10*3/uL MPV (9.4-12.3) fL Immature Gran % (Auto) (0.0-0.4) % Neut % (Auto) (45-73) % Lymph % (Auto) (20-40) % [place] % (Auto) (2-11) % Eos % (Auto) (0-4) % Baso % (Auto) (0-2) % Lymph # (Auto) (1.2-4.9) X10*3/uL [place] # (Auto) (0.1-1.2) X10*3/uL Eos # (Auto) (0.0-0.4) X10*3/uL Baso # (Auto) (0.0-0.2) X10*3/uL Abs Immat Gran (auto) (0.00-0.03) X10*3/uL Absolute Neuts (auto) (2.0-8.3) x10*3/uL Absolute Nucleated RBC (0.0-0.012) X10*3/uL Nucleated RBC % (auto) (0.0-0.2) /100WBC Sodium (135-145) mmol/L Potassium (3.3-5.1) mmol/L Chloride (96-108) mmol/L Carbon Dioxide (22-29) mmol/L Anion Gap (12-20) BUN (9-16) mg/dL Creatinine (0.5-1.4) mg/dL Estim Creat Clear Calc Estimated GFR Random Glucose (60-115) mg/dL Calcium (8.4-10.2) mg/dL Total Bilirubin (0.0-1.0) mg/dL AST (5-31) U/L ALT (0-31) U/L Alkaline Phosphatase (39-117) U/L Total Protein (6.5-8.0) g/dL Albumin (3.5-5.0) g/dL Lipase (8-78) U/L Beta HCG, Quant mIU/mL Urine Color Urine Appearance Urine pH (5.0-9.0) Ur Specific [place] (1.005-1.025) Urine Protein (Neg-Trace) mg/dL Urine Glucose (UA) (Negative) mg/dL Urine Ketones (Negative) mg/dL Urine Blood (Negative) Urine Nitrite (Negative) Ur Leukocyte Esterase (Negative) Urine Test NEGATIVE (NEGATIVE) Radiology Impression Discussion of test interpretation with radiology: I have reviewed the radiologist's reading. Radiologist Impression: CT/CT abdomen pelvis w IV con IMPRESSION: No acute findings of the abdomen or pelvis. No inflammatory changes. Normal appearance of the gallbladder. External Record Review External record reviewed: Outpatient record Prescription Management I considered prescription management with: Pain Medication ( acetaminophen/ibuprofen) Discharge Plan Discharge Clinical Impression: Gastroenteritis Patient Disposition: Home, Self-Care Instructions: Gastroenteritis (ED) Additional Instructions: Introduce a bland diet including crackers, bananas, rice, soup, toast, and boiled vegetables. This may progress to plain baked or boiled chicken or turkey. Avoid dairy products or foods high in fat or grease. be sure to rest, drink plenty of fluids. take Zofran as needed for nausea/vomiting Follow-up with your primary care provider within 1-2 days. Return back to emergency department any new or worsening symptoms or concerns. Prescriptions: New ondansetron 4 mg tablet,disintegrating 4 mg PO Q8H PRN (Reason: nausea and vomiting) Qty: 10 0RF No Action ciprofloxacin HCl [Cipro] 500 mg tablet 500 mg PO Q12H Qty: 20 0RF phenazopyridine [Pyridium] 200 mg tablet 200 mg PO TID PRN (Reason: pain) Qty: 10 0RF oxycodone 5 mg tablet 5 mg PO Q8H PRN (Reason: pain) Qty: 8 0RF Rx Instructions: Partial Fill upon patient request. Referrals: Physician,None [Primary Care Provider] - Stand Alone Forms: Work/School Release Interventions: ED Discharge Assessment Last Done: 05/30/23 01:45 Discharge Date/Time: 05/30/23 01:47
[2023-05-29 20:04] LABS: Basophils Percent Auto 0.4 % (0-2); Eosinophils Absolute Auto 0.1 X10*3/uL (0.0-0.4); Hematocrit 37.7 % (37.0-47.0); Hemoglobin 12.4 g/dl (12.0-16.0); Imm Gran Abs Auto 0.01 X10*3/uL (0.00-0.03); Imm Gran Pct Auto 0.1 % (0.0-0.4); Lymphocytes Absolute Auto 2.7 X10*3/uL (1.2-4.9); Lymphocytes Percent Auto 38.5 % (20-40); Mean Corpuscular HGB Conc 32.9 g/dl (31.0-35.0); Mean Corpuscular Volume 97.2 fL (80.0-98.0); Mean Platelet Volume 10.6 fL (9.4-12.3); Monocytes Absolute Auto 0.4 X10*3/uL (0.1-1.2); Monocytes Percent Auto 5.6 % (2-11); Neutrophils Absolute Auto 3.8 x10*3/uL (2.0-8.3); Neutrophils Percent Auto 54.4 % (45-73); Platelet Count 338 X10*3/uL (160-400); Red Blood Count 3.88 X10*6/uL (4.20-5.50); Red Cell Distribution Width 13.4 % (11.0-16.0); White Blood Count 6.9 X10*3/uL (4.8-10.8)
[2023-05-29 20:21] LABS: Alanine Aminotransferase 17 U/L (0-31); Albumin Level 4.4 g/dL (3.5-5.0); Alkaline Phosphatase 65 U/L (39-117); Anion Gap 11 (12-20); Aspartate Amino Transferase 17 U/L (5-31); Bilirubin Total 0.3 mg/dL (0.0-1.0); Blood Urea Nitrogen 10 mg/dL (9-16); Carbon Dioxide 23 mmol/L (22-29); Chloride 109 mmol/L (96-108); Creatinine Clr Calc Pharmacy 99.3; Estimated Glomerular Filt Rate > 60; Glucose Random 84 mg/dL (60-115); Lipase 21 U/L (8-78); Potassium 4.1 mmol/L (3.3-5.1); Sodium 139 mmol/L (135-145); Total Protein 7.7 g/dL (6.5-8.0)
[2023-05-29 20:56] LABS: HCG Quantitative < 2 mIU/mL
--- OUTSIDE RECORDS SUMMARY | 2023-05-29 21:11 | XMS_ITS | Continuity of Care Document ---
Author Name Unknown Organization [facility] ter Address [address] [place] [address]- Care Team Providers Care Strand Forming Machine Operator Name Role Phone Not on Staff, PCP Primary Care Physician Unavail able Encounter [facility] [place] Date(s): 04/21/23 - 04/21/[address] [address]- Discharge Disposition: A-D/C Home Attending Physician: Augie SORIANO, Danae Escobedo Admitting Physician: Danae Ghosh MD Referring Physician: Not on Staff, Referring MD Allergies, Adverse Reactions, Alerts Substance Reaction Severity Status shellfish Active Immunizations Given and Recorded Vaccine Date Status Refusal Reason tetanus/diphtheria/pertussis, acel(Tdap) 08/23/20 Given tetanus/diphtheria/pertussis, acel(Tdap) 12/31/15 Given tetanus/diphtheria/pertussis, acel(Tdap) 01/08/15 Given tetanus/diphtheria/pertussis, acel(Tdap) 1 02/20/12 Given influenza virus vaccine, inactivated 08/07/14 Give n influenza virus vaccine, inactivated 09/29/11 Give n 1Admin Note: VIS 11/02/11 Medications ferrous sulfate 325 mg oral enteric coated tablet 325 mg, 1, tablet, By Mouth, 2 times a day with meals, iron supplement, # 60 tablet, Refills 0, Tot. Refills 0, Maintenance, 01/06/16 22:08:39, Route to Pharmacy Electronically, [id number], [facility] #[id number] Start Date: 01/06/16 Stop Date: 02/05/16 Status: Ordered FLUoxetine 10 mg oral capsule 20 mg, 2, capsule, By Mouth, Daily in AM, take one tablet for 6 days, then increase to 2 tablets daily; for depression, anxiety, # 60 capsule, Refills 0, Tot. Refills 0, Maintenance, 01/06/16 22:08:48, Route to Pharmacy Electronically, [id number]... Start Date: 01/06/16 Stop Date: 02/05/16 Status: Ordered traZODone 50 mg oral tablet 50 mg, 1, tablet, By Mouth, Daily at bedtime, PRN, # 30 tablet, Refills 0, Tot. Refills 0, Maintenance, Insomnia, 01/06/16 22:10:23, Route to Pharmacy Electronically, [id number], [facility]/pharmacy #[id number] Start Date: 01/06/16 Stop Date: 02/05/16 Status: Ordered Zofran ODT 4 mg oral tablet, disintegrating 1 tablet = 4 mg, By Mouth, 3 times a day, PRN Vomiting, allow tablet to dissolve on tongue, # 9 tablet, 0 Refills, Maintenance, 01/15/18 0:37:22 EDT Start Date: 01/15/18 Stop Date: 01/18/18 Status: Ordered Vital Signs Most recent to oldest [Reference Range]: 1 Oxygen Saturation [94-100 %] 98 % (04/21/23 6:14 AM) Pulse Rate [55-90 bpm] 95 bpm *H* (04/21/23 6:14 AM) Blood Pressure [90-138/55-84 mm Hg] 116/ 78mm Hg (04/21/23 6:14 AM) Respiratory Rate [16-30 br/min] 16 br/mi n (04/21/23 6:14 AM) Temperature [96.8-100.4 DegF] 97.5 DegF (04/21/23 6:14 AM) Mode of Delivery (Oxygen) Room air (04/21/23 6:14 AM) Temperature Route Oral (04/21/23 6:14 AM) Social History Social History Type Response Smoking Status Never smoker entered on: 03/07/15 Sex Female Patient Care team information Care Team Personnel Name: Yvonne Deluna RN Position: [facility] OB RN Member Role: Primary Care Nurse Name: Daniel GERBER, Sandra Lopez Position: [facility] PCO Associate Professional Member Role: Primary Care Nurse Address: Address: [address] [place] [address] [place] [address]- [place] Name: Not on Staff, PCP Position: [facility] Physician (General Medicine) Member Role: PCP Name: Raysa Singh RN Position: [facility] OB RN Member Role: Primary Care Nurse Name: Savannah Joseph DO Position: [facility] Resident Member Role: ED Resident Address: Address: [address] [place] [address]- Name: Danae Ghosh MD Position: [facility] ED Medicine MD Member Role: Admitting Physician Address: Address: [address] [place] [address]- Name: Sigrid Morales RN Position: [facility] ED RN W/OE and Tasks Member Role: Patient Care Provider Address: Address: [address] [place] [address] [place] [address]- Name: Catrachita Joaquin Position: [facility] ED TA [facility] Care Team Related Persons Name: SANDRA PARIKH Address: home [address] [place] [address] Name: PUMA PARIKH Address: home [address] [address] Name: NAIMA FLOREZ Address: home [address] [place] [address]
--- OUTSIDE RECORDS SUMMARY | 2023-05-29 21:11 | XMS_ITS | Continuity of Care Document ---
Author Name Unknown Organization [facility] Address [address] [place] [address]- Care Team Providers Care Gas Mask Inspector Name Role Phone Not on Staff, PCP Primary Care Physician Unavail able Encounter [facility] Date(s): 03/11/21 - 07/09/[address] [address]- Attending Physician: Danielle Way CNM Admitting Physician: Danielle Way CNM Referring Physician: Indira Montoya MD Allergies, Adverse Reactions, Alerts Substance Reaction [...] Maintenance, 01/06/16 22:08:39, Route to Pharmacy Electronically, [id number], [facility]/pharmacy #[id number] Start Date: 01/06/16 Stop Date: 02/05/16 Status: Ordered FLUoxetine 10 mg oral capsule 20 mg, 2, capsule, By Mouth, Daily in AM, take one tablet for 6 days, then increase to 2 tablets daily; for depression, anxiety, # 60 capsule, Refills 0, Tot. Refills 0, Maintenance, 01/06/16 22:08:48, Route to Pharmacy Electronically, [id number]... Start Date: 01/06/16 Stop Date: 02/05/16 Status: Ordered traZODone 50 mg oral tablet 50 mg, 1, tablet, By Mouth, Daily at bedtime, PRN, # 30 tablet, Refills 0, Tot. Refills 0, Maintenance, Insomnia, 01/06/16 22:10:23, Route to Pharmacy Electronically, [id number], [facility]/pharmacy #[id number] Start Date: 01/06/16 Stop Date: 02/05/16 Status: Ordered Zofran ODT 4 mg oral tablet, disintegrating 1 tablet = 4 mg, By Mouth, 3 times a day, PRN Vomiting, allow tablet to dissolve on tongue, # 9 tablet, 0 Refills, Maintenance, 01/15/18 0:37:22 EDT Start Date: 01/15/18 Stop Date: 01/18/18 Status: Ordered Social History Social History Type Response Smoking Status Never smoker entered on: 03/07/15 Sex Female
--- OUTSIDE RECORDS SUMMARY | 2023-05-29 21:11 | XMS_ITS | Continuity of Care Document ---
Author Name Unknown Organization [facility] Address [address] [place] [address]- Care Team Providers Care Studio Potter Name Role Phone Not on Staff, PCP Primary Care Physician Unavail able Encounter [facility] Date(s): 04/08/21 - 05/08/[address] [address] Attending Physician: Suresh Herrera Admitting Physician: AdmtrSuresh Referring Physician: Admtr, ArKatelyn Allergies, Adverse Reactions, Alerts Substance Reaction Severity [...] Maintenance, 01/06/16 22:08:39, Route to Pharmacy Electronically, [id number], [facility]/pharmacy #[id number] Start Date: 01/06/16 Stop Date: 02/05/16 Status: Ordered FLUoxetine 10 mg oral capsule 20 mg, 2, capsule, By Mouth, Daily in AM, take one tablet for 6 days, then increase to 2 tablets daily; for depression, anxiety, # 60 capsule, Refills 0, Tot. Refills 0, Maintenance, 01/06/16 22:08:48, Route to Pharmacy Electronically, [id number]... Start Date: 01/06/16 Stop Date: 02/05/16 Status: Ordered traZODone 50 mg oral tablet 50 mg, 1, tablet, By Mouth, Daily at bedtime, PRN, # 30 tablet, Refills 0, Tot. Refills 0, Maintenance, Insomnia, 01/06/16 22:10:23, Route to Pharmacy Electronically, [id number], [facility]/pharmacy #[id number] Start Date: 01/06/16 Stop [...]
--- OUTSIDE RECORDS SUMMARY | 2023-05-29 21:11 | XMS_ITS | Continuity of Care Document ---
Author Name Unknown Organization [facility] Address [address] [place] [address]- Care Team Providers Care C D Reactor Operator Name Role Phone Not on Staff, PCP Primary Care Physician Unavail able Encounter [facility] Date(s): 06/09/21 - 07/09/[address] [address] Attending Physician: Suresh Herrera Admitting Physician: AdmtrSuresh Referring Physician: AdmtrSuresh Allergies, Adverse Reactions, Alerts Substance Reaction Severity [...] Maintenance, 01/06/16 22:08:39, Route to Pharmacy Electronically, [id number], [facility]/pharmacy #[id number] Start Date: 01/06/16 Stop Date: 02/05/16 Status: Ordered FLUoxetine 10 mg oral capsule 20 mg, 2, capsule, By Mouth, Daily in AM, take one tablet for 6 days, then increase to 2 tablets daily; for depression, anxiety, # 60 capsule, Refills 0, Tot. Refills 0, Maintenance, 01/06/16 22:08:48, Route to Pharmacy Electronically, [id number]... Start Date: 01/06/16 Stop Date: 02/05/16 Status: Ordered traZODone 50 mg oral tablet 50 mg, 1, tablet, By Mouth, Daily at bedtime, PRN, # 30 tablet, Refills 0, Tot. Refills 0, Maintenance, Insomnia, 01/06/16 22:10:23, Route to Pharmacy Electronically, [id number], [facility]/pharmacy #[id number] Start Date: 01/06/16 Stop Date: 02/05/16 [...]
--- OUTSIDE RECORDS SUMMARY | 2023-05-29 21:11 | XMS_ITS | Continuity of Care Document ---
Author Name Unknown Organization [facility] Address [address] [place] [address]- Care Team Providers Care Composite Boat Builder Name Role Phone Not on Staff, PCP Primary Care Physician Unavail able Encounter [facility] Date(s): 02/23/21 - 03/25/[address] [address]- Allergies, Adverse Reactions, Alerts Substance Reaction Severity [...] Maintenance, 01/06/16 22:08:39, Route to Pharmacy Electronically, [id number], [facility]/pharmacy #[id number] Start Date: 01/06/16 Stop Date: 02/05/16 Status: Ordered FLUoxetine 10 mg oral capsule 20 mg, 2, capsule, By Mouth, Daily in AM, take one tablet for 6 days, then increase to 2 tablets daily; for depression, anxiety, # 60 capsule, Refills 0, Tot. Refills 0, Maintenance, 01/06/16 22:08:48, Route to Pharmacy Electronically, [id number]... Start Date: 01/06/16 Stop Date: 02/05/16 Status: Ordered traZODone 50 mg oral tablet 50 mg, 1, tablet, By Mouth, Daily at bedtime, PRN, # 30 tablet, Refills 0, Tot. Refills 0, Maintenance, Insomnia, 01/06/16 22:10:23, Route to Pharmacy Electronically, [id number], [facility]/pharmacy #[id number] Start Date: 01/06/16 Stop Date: 02/05/16 [...]
--- OUTSIDE RECORDS SUMMARY | 2023-05-29 21:11 | XMS_ITS | Continuity of Care Document ---
Author Name Unknown Organization [facility] Address [address] [place] [address]- Care Team Providers Care Post Closer Name Role Phone Not on Staff, PCP Primary Care Physician Unavail able [place] [facility] [place]25[place] - 05/08/[address] [address]- Attending Physician: Not on Staff, Attending MD Referring Physician: Indira Montoya MD Allergies, Adverse [...] Maintenance, 01/06/16 22:08:39, Route to Pharmacy Electronically, [id number], [facility]/pharmacy #[id number] Start Date: 01/06/16 Stop Date: 02/05/16 Status: Ordered FLUoxetine 10 mg oral capsule 20 mg, 2, capsule, By Mouth, Daily in AM, take one tablet for 6 days, then increase to 2 tablets daily; for depression, anxiety, # 60 capsule, Refills 0, Tot. Refills 0, Maintenance, 01/06/16 22:08:48, Route to Pharmacy Electronically, [id number]... Start Date: 01/06/16 Stop Date: 02/05/16 Status: Ordered traZODone 50 mg oral tablet 50 mg, 1, tablet, By Mouth, Daily at bedtime, PRN, # 30 tablet, Refills 0, Tot. Refills 0, Maintenance, Insomnia, 01/06/16 22:10:23, Route to Pharmacy Electronically, [id number], [facility]/pharmacy #[id number] Start Date: 01/06/16 Stop Date: [...]
--- OUTSIDE RECORDS SUMMARY | 2023-05-29 21:11 | XMS_ITS | Continuity of Care Document ---
Author Name Unknown Organization [facility] Evelina mcfarlandAnergis [facility] Address [address], [address] [place] [address]- Care Team Providers Care Prover Name Role Phone Not on Staff, PCP Primary Care Physician Unavail able Encounter [facility] Date(s): 12/28/22 - 01/30/23 [facility] Evelinajeremie ArzateM3X Medias [facility] [address]th [place] [address]- Attending Physician: Not on Staff, Attending MD Referring Physician: Michael Xiong Allergies, Adverse Reactions, Alerts Substance Reaction Severity [...] Maintenance, 01/06/16 22:08:39, Route to Pharmacy Electronically, [id number], [facility]/pharmacy #[id number] Start Date: 01/06/16 Stop Date: 02/05/16 Status: Ordered FLUoxetine 10 mg oral capsule 20 mg, 2, capsule, By Mouth, Daily in AM, take one tablet for 6 days, then increase to 2 tablets daily; for depression, anxiety, # 60 capsule, Refills 0, Tot. Refills 0, Maintenance, 01/06/16 22:08:48, Route to Pharmacy Electronically, [id number] Start Date: 01/06/16 Stop Date: 02/05/16 Status: Ordered traZODone 50 mg oral tablet 50 mg, 1, tablet, By Mouth, Daily at bedtime, PRN, # 30 tablet, Refills 0, Tot. Refills 0, Maintenance, Insomnia, 01/06/16 22:10:23, Route to Pharmacy Electronically, [id number], [facility]/pharmacy #[id number] Start Date: 01/06/16 Stop Date: 02/05/16 [...] Team Personnel Name: Yvonne Deluna RN Position: [facility] OB RN Member Role: Primary Care Nurse Name: Sandra Sanchez NP Position: [facility] PCO Associate Professional Member Role: Primary Care Nurse Address: Address: [address] [place] [address] [place], [place] [address] Name: Not on Staff, PCP Position: [facility] Physician (General Medicine) Member Role: PCP Name: Raysa Singh RN Position: [facility] OB RN Member Role: Primary Care Nurse Care Team Related Persons Name: SANDRA PARIKH Address: home [address] [place] [address] Name: PUMA PARIKH Address: home [address] [place] [address] Name: NAIMA FLOREZ Address: home [address] [place] [address]
--- OUTSIDE RECORDS SUMMARY | 2023-05-29 21:11 | XMS_ITS | Continuity of Care Document ---
Author Name Unknown Organization [facility] Evelina yang [facility] Address [address], [address] [place] [address]- Care Team Providers Care Measuring Machine Tender Name Role Phone Not on Staff, PCP Primary Care Physician Unavail able Encounter [facility] Date(s): 12/31/22 - 01/30/23 [facility] [employer]remie [employer] [facility] [address] [place], [place] [address] Attending Physician: Suresh Herrera Admitting Physician: AdmSuresh estrella Referring Physician: AdmtrSuresh Allergies, Adverse Reactions, Alerts [...] Maintenance, 01/06/16 22:08:39, Route to Pharmacy Electronically, [id number], [facility]/pharmacy #[id number] Start Date: 01/06/16 Stop Date: 02/05/16 Status: Ordered FLUoxetine 10 mg oral capsule 20 mg, 2, capsule, By Mouth, Daily in AM, take one tablet for 6 days, then increase to 2 tablets daily; for depression, anxiety, # 60 capsule, Refills 0, Tot. Refills 0, Maintenance, 01/06/16 22:08:48, Route to Pharmacy Electronically, [id number] Start Date: 01/06/16 Stop Date: 02/05/16 Status: Ordered traZODone 50 mg oral tablet 50 mg, 1, tablet, By Mouth, Daily at bedtime, PRN, # 30 tablet, Refills 0, Tot. Refills 0, Maintenance, Insomnia, 01/06/16 22:10:23, Route to Pharmacy Electronically, [id number], [facility]/pharmacy #[id number] Start Date: 01/06/16 Stop [...] Team Personnel Name: Yvonne Deluna RN Position: [facility] OB RN Member Role: Primary Care Nurse Name: Sandra Sanchez NP Position: [facility] PCO Associate Professional Member Role: Primary Care Nurse Address: Address: [address] [place] [address] [place] [address]- Name: Not on Staff, PCP Position: [facility] Physician (General Medicine) Member Role: PCP Name: Raysa Singh RN Position: [facility] OB RN Member Role: Primary Care Nurse Care Team Related Persons Name: SANDRA PARIKH Address: [address] [place] [address] Name: PUMA PARIKH Address: home [address] [place] [address] Name: NAIMA FLOREZ Address: home [address] [place] [address]
--- NOTE | 2023-05-29 21:23 | PC.NURSE ---
Pt ca&ox4, no signs of distress. Pt reports 5/10 right flank and abdm (epigastric) pain, bloating and nausea. Pt denies vomiting. plan of care ongoing.
[2023-05-29 21:39] LABS: UPreg QC Valid YES; Urine Pregnancy NEGATIVE (NEGATIVE)
[2023-05-29 21:42] LABS: Appearance Urine Clear; Color Urine Yellow; Glucose Urine UA Negative (Negative); Leukocyte Esterase Urine Negative (Negative); Nitrite Urine Negative (Negative); PH 5.5 (5.0-9.0); Specific Gravity - Urine 1.025 (1.005-1.025); Urine Blood Negative (Negative); Urine Ketones Negative (Negative); Urine Protein Negative (Neg-Trace)
[2023-05-29] MEDS: 0.9 % Sodium Chloride 1,000 ML 999 ML IV (22:51)
[2023-05-29] MEDS: Ketorolac Tromethamine 15 MG/ML VIAL IVPUSH (22:55)
[2023-05-29] MEDS: ondansetron HCL 4 MG/2 ML VIAL IVPUSH (22:56)
--- NOTE | 2023-05-29 23:00 | PC.NURSE ---
Pt iv started. Pt medicated per dec. Pt HOB lowered and lights dimmed. Pt given pillow. plan of care ongoing.
[2023-05-29] MEDS: iohexoL 350 MG/ML 100 ML INFUS..BTL 85 ML IV (23:27)
[2023-05-30 00:30] VITALS: RESP 14
[2023-05-30 00:47] VITALS: BP 109/49; PULSE 49; RESP 18; TEMP 37.1; O2SAT 99
== END 2023-05-30 01:47 | disposition home or self-care (01) ==
PROVIDERS: Physician Assistant; Emergency Provider Internal Medicine
DX: K52.9 Noninfective gastroenteritis and colitis, unspecified (principal); R10.11 Right upper quadrant pain; R10.13 Epigastric pain; Z79.899 Other long term (current) drug therapy
CPT/HCPCS: 36415; 74177; 80053; 81003; 81025; 83690; 84702; 85025; 99284; 99285; J1885; J2405; Q9967